=== PATIENT | male | born 1955 | race Two or more races ===

== ENCOUNTER 2022-04-26 10:27 | Outpatient (CLI) | payer OTHER | END 2022-04-26 10:30 | disposition home or self-care (01) | LOC: LAB 10:27 | PROVIDERS: ATTEND Urology | DX: C61 Malignant neoplasm of prostate (principal) ==

== ENCOUNTER 2022-05-06 09:37 | Outpatient (CLI) | payer OTHER | END 2022-05-06 09:41 | disposition home or self-care (01) | LOC: LAB 09:37 | PROVIDERS: ATTEND Urology | DX: N18.9 Chronic kidney disease, unspecified (principal) ==

== ENCOUNTER 2022-05-06 09:47 | Outpatient (CLI) | payer OTHER | END 2022-05-06 10:10 | disposition home or self-care (01) | LOC: SONOGRAMA 09:47 | PROVIDERS: ATTEND Urology | DX: C61 Malignant neoplasm of prostate (principal); C67.9 Malignant neoplasm of bladder, unspecified; N18.9 Chronic kidney disease, unspecified ==